=== PATIENT | female | born 1990 | race African-American/Black ===

== ENCOUNTER 2018-02-16 22:53 | Emergency (ER) | payer OTHER ==
[~2018-02-16] VITALS: Ht 152.4 cm; Wt 202.8 kg
[2018-02-16 23:02] VITALS: BP 134/94
--- NOTE | 2018-02-16 23:17 | NUR ---
27/F CAME IN W C/O ADULT ASTHMA, PRODUCTIVE COUGH, CHEST TIGHTNESS X 2 DAYS. ALL LUNG SOUNDS CBTA, 20 RR EVEN AND UNLABORED. SATS 98% RA. PT ABLE TO SPEAK AT FULL LENGTH WITHOUT DIFFICULTIES. PT REPORTS SHE WAS SEEN URGENT CARE FOR SIMILAR SX AND WAS SENT HOME WITH ALBUTEROL INH, PT NONCOMPLIANT WITH MEDS. PMH: ASTHMA
--- NOTE | 2018-02-16 23:18 | NUR ---
PT AMBULATED TO ER BED 5
[2018-02-17] MEDS ORDERED: ALBUTEROL SULFATE/IPRATROPIU 3 ML SOL IH ONE (00:20)
--- NOTE | 2018-02-17 01:55 | NUR ---
Patient discharged with v/s stable. Written and verbal after care instructions given and explained. Patient verbalized understanding. Ambulatory with steady gait. All questions addressed prior to discharge. Advised to follow up with PMD.
[2018-02-17 01:56] VITALS: BP 151/95
== END 2018-02-17 01:55 | disposition home or self-care (01) ==
LOC: MED 22:53
DX: J45.909 Unspecified asthma, uncomplicated (principal)
CPT/HCPCS: 71045; 81025; 94640; 94760; 99284; J7620

== ENCOUNTER 2018-11-04 22:33 | Emergency (ER) | payer OTHER ==
[~2018-11-04] VITALS: Ht 154.9 cm; Wt 207.3 kg
[2018-11-04 22:59] VITALS: BP 141/72
--- NOTE | 2018-11-05 00:38 | NUR ---
PT AMBULATED TO BED 07.
--- NOTE | 2018-11-05 00:55 | NUR ---
PT IS A 28 Y/O FEMALE WHO PRESENTS TO THE ED C/O BURN. PT STATES THAT SHE WAS USING [employer] AND REPORTS PAIN TO STOMACH AREA X2 DAYS AGO. PT USED NEOSPORIN WITH NO RELIEF. PT REPORTS 8/10 ACHING PAIN THAT DOES NOT RADIATE. PT DENIES CP, SOB, N/V/D. PT AWAKE AND ALERT, RR EVEN/UNLABORED. PT REPOSITIONED FOR COMFORT, BED IN LOWEST POSITION. ER MD DR. MACHUCA NOTIFIED. WILL CONTINUE TO MONITOR. NO PMH NKA
[2018-11-05] MEDS ORDERED: SILVER SULFADIAZINE 1% 50 GM JAR TP ONE (01:30)
--- NOTE | 2018-11-05 02:11 | NUR ---
PER VERBAL ORDER FROM DR MACHUCA, PT WOUNDS COVERED WITH NON ADHERENT DRESSINGS AFTER SILVERDENE APPLIED. DRESSINGS COVERED WITH MICROFOAM TAPE FOR SUPPORT.
[2018-11-05 02:21] VITALS: BP 135/80
--- NOTE | 2018-11-05 02:22 | NUR ---
Patient discharged with v/s stable. Written and verbal after care instructions given and explained. Patient alert, oriented and verbalized understanding of instructions. Ambulatory with steady gait. All questions addressed prior to discharge. ID band removed. Patient advised to follow up with PMD. Rx of SILVADENE given. Patient educated on indication of medication including possible reaction and side effects. Opportunity to ask questions provided and answered.
== END 2018-11-05 02:21 | disposition home or self-care (01) ==
LOC: MED 22:33
DX: T21.42XA Corrosion of unspecified degree of abdominal wall, initial encounter (principal); J45.909 Unspecified asthma, uncomplicated; Y93.89 Activity, other specified; Y92.89 Other specified places as the place of occurrence of the external cause; Y99.8 Other external cause status
CPT/HCPCS: 16020; 99283; 99284

== ENCOUNTER 2022-03-03 22:12 | Emergency (ER) | payer OTHER ==
[~2022-03-03] VITALS: Ht 154.9 cm; Wt 201.8 kg
[2022-03-03 22:16] VITALS: BP 174/104
--- NOTE | 2022-03-03 22:26 | NUR ---
TO LOBBY FOLLOWING TRIAGE
[2022-03-03] MEDS ORDERED: PRED20TA5 PO (22:35)
[2022-03-03] MEDS ORDERED: ALBU0.0912 INH (22:35)
[2022-03-03] MEDS ORDERED: methylPREDNISolone SS 125 MG/2 ML VIAL IM ONE (22:35)
[2022-03-03] MEDS ORDERED: ALBUTEROL SULFATE/IPRATROPIU 3 ML SOL IH ONE (22:35)
--- NOTE | 2022-03-03 23:00 | NUR ---
PT TAKEN TO BED #10
--- NOTE | 2022-03-03 23:15 | NUR ---
RT AT BEDSIDE FOR TX.
--- NOTE | 2022-03-03 23:47 | NUR ---
Pt states, " I feel so much better after that breathing treatment."
[2022-03-04 00:07] VITALS: BP 158/94
--- NOTE | 2022-03-04 00:07 | NUR ---
Patient discharged with v/s stable. Written and verbal after care instructions given and explained. Patient alert, oriented and verbalized understanding of instructions. Ambulatory with steady gait. All questions addressed prior to discharge. ID band removed. Patient advised to follow up with PMD. Rx of albuterol sulfate and prednisone given. Patient educated on indication of medication including possible reaction and side effects. Opportunity to ask questions provided and answered.
== END 2022-03-04 00:07 | disposition home or self-care (01) ==
LOC: MED 22:12
DX: J45.901 Unspecified asthma with (acute) exacerbation (principal)
CPT/HCPCS: 94640; 96372; 99283; J2930